=== PATIENT | female | born 1980 ===

== ENCOUNTER 2016-10-24 10:34 | Day surgery (SDC) | payer MEDICAID ==
[2016-10-17 14:18] VITALS: BMI 29.4
[2016-10-24 13:53] VITALS: RESP 18; O2SAT 100
[2016-10-24 15:35] VITALS: BP 119/64; PULSE 62; TEMP 98
== END 2016-10-24 14:45 | disposition home or self-care (01) ==
LOC: C.SDS 10:34
PROVIDERS: ATTEND Surgery Surgical Critical Care
DX: R22.9 Localized swelling, mass and lump, unspecified (principal)
CPT/HCPCS: 11406; 12034; 88305; J0690; J1170; J2250; J2270; J2704; J3010; J7120